=== PATIENT | female | born 1990 | race African-American/Black ===

== ENCOUNTER 2021-03-04 17:23 | Emergency (ER) | payer OTHER ==
[~2021-03-04] VITALS: Ht 172.7 cm; Wt 135.4 kg
[~2021-03-04 17:23] MED LIST: PREN1TAB27 PO
[2021-03-04 19:10] VITALS: BP 147/92
[2021-03-04] MEDS ORDERED: MOME17SP NS (19:45)
[2021-03-04] MEDS ORDERED: GUAI-108 PO (19:45)
--- NOTE | 2021-03-04 19:45 | PHYS DOC ---
Past Medical History Past Medical History: Bipolar, Depression Past Surgical History: Tubal ligation Smoking Status: Current Every Day Smoker Alcohol Use: Occasionally Drug Use: Other General Adult EDM: Chief Complaint: COUGH HPI: HPI: Patient is a 30 year old female with a past medical history of bipolar presents with the chief complaint of sinus congestion clear nasal drainage cough with clear sputum production and sneezing. Patient states symptoms started yesterday. Patient denies any associated fever chills chest pain or shortness of breath. Patient's vital signs are stable. Suspect patient has allergic rhinitis. Will place patient on Mucinex D and Nasonex. Patient was recommended [id number] Buda pot sinus rinse. Review of Systems: Review of Systems: Review of systems: Constitutional symptoms- No fever, no chills. Eyes- No Discharge, No Visual Loss Respiratory symptoms- No shortness of breath, No wheezing, No Dyspnea on Exertion positive cough Cardiovascular Systems; No chest pain, No Palpitations, No syncope Gastrointestinal symptoms: NO abdominal pain, no nausea, no vomiting or diarrhea. Genitourinary symptoms: No dysuria. Musculoskeletal symptoms: No back pain No extremity pain. NEUROLOGICAL Symptoms: No headache, no generalized weakness; No focal Weakness HEENT positive sinus congestion positive sneezing positive nasal drainage Heart Score: C/O Chest Pain: N/A Risk Factors: Risk Factors: DM, Current or recent (<one month) smoker, HTN, HLP, family history of CAD, obesity. Risk Scores: Score 0 - 3: 2.5% MACE over next 6 weeks - Discharge Home Score 4 - 6: 20.3% MACE over next 6 weeks - Admit for Clinical Observation Score 7 - 10: 72.7% MACE over next 6 weeks - Early Invasive Strategies Allergies: Allergies: Allergies Coded Allergies Type Severity Reaction Last Updated Verified amoxicillin trihydrate Allergy Intermediate hives 10/22/15 Yes potassium clavulanate Allergy Intermediate hives 10/22/15 Yes Physical Exam: PE: General: alert, no acute distress. Skin: warm, dry and intact. Head:: Normocephalic, atraumatic. Neck: Trachea midline. Eyes: EOMI, Normal conjunctiva, No drainage CARDIOVASCULAR: Regular rate and rhythm RESPIRATORY: No respiratory distress Back: Full range of motion. MUSCULOSKELETAL: Full range of motion of bilateral upper and lower extremities. GASTROINTESTINAL: Abdomen soft without rebound or guarding. NEUROLOGICAL: Alert and noted to person, place and time. No neurological deficits observed Psychiatric: Cooperative. Normal judgment HEENT frontal maxillary sinus tenderness clear nasal drainage postnasal drip EKG: EKG: [] Radiology/Procedures: Radiology/Procedures: [] Course & Med Decision Making: Course & Med Decision Making Pertinent Labs and Imaging studies reviewed. (See chart for details) [] Dragon Disclaimer: Dragon Disclaimer: This electronic medical record was generated, in whole or in part, using a voice recognition dictation system. Departure Departure Impression: Primary Impression: Allergic rhinitis Disposition: HOME / SELF CARE / HOMELESS Condition: STABLE Referrals: NO PCP (PCP) Patient Instructions: Allergic Rhinitis Scripts Guaifenesin/Dextromethorphan (MUCINEX DM ER 600-30 MG TABLET) 1 Each Tab.er.12h 1 TAB PO PRN BID PRN for cough and congestion for 14 Days, #28 TAB 0 Refills Prov: VERONIKA SOLIS DO 03/04/21 Mometasone Furoate (NASONEX) 17 Gm [place].pump 1 SPRAY NS DAILY, #1 INHALER 3 Refills Prov: VERONIKA SOLIS DO 03/04/21 VERONIKA SOLIS DO March 04, 2021 19:45
--- NOTE | 2021-03-06 09:02 | NUR ---
IP: Informed pt of negative coivd test. Pt verbalized understanding.
== END 2021-03-04 20:15 | disposition home or self-care (01) ==
LOC: ER 17:23
DX: J30.9 Allergic rhinitis, unspecified (principal); F17.200 Nicotine dependence, unspecified, uncomplicated; F31.9 Bipolar disorder, unspecified; Z88.1 Allergy status to other antibiotic agents; Z88.8 Allergy status to other drugs, medicaments and biological substances
CPT/HCPCS: 99283; U0003; U0005